=== PATIENT | female | born 1950 | race Caucasian/White ===

== ENCOUNTER 2023-07-07 06:21 | Day surgery (SDC) | payer MEDICARE, SELFPAY ==
[2023-06-26 10:58] LABS: Hematocrit 42.5 % (37.0-47.0); Hemoglobin 14.6 g/dL (12.0-16.0); Mean Corp Hgb Conc. 34.4 g/dL (33.0-37.0); Mean Corpuscular Hgb 32.6 pg (27.0-31.0); Mean Corpuscular Volume 94.9 fL (81.0-99.0); Mean Platelet Volume 11.2 fL (7.4-10.4); Platelet Count 252 10^3/uL (130-400); Red Blood Cell Count 4.48 10^6/uL (4.20-5.40); White Blood Cell Count 7.6 10^3/uL (4.8-10.8)
[2023-06-26 11:34] LABS: ALT (SGPT) 27 U/L (0-35); AST (SGOT) 29 U/L (14-36); Albumin 3.8 g/dl (3.5-5.0); Alkaline Phosphatase 85 U/L (38-126); Blood Urea Nitrogen 19 mg/dl (7-17); Calcium 9.6 mg/dl (8.4-10.2); Carbon Dioxide 26 mmol/L (22-30); Chloride 102 mmol/L (98-107); Glucose 88 mg/dl (70-99); Potassium 4.6 mmol/L (3.5-5.1); Sodium 137 mmol/L (135-145); Total Bilirubin 0.9 mg/dl (0.2-1.3); Total Protein 6.5 g/dl (6.3-8.2); eGFR > 60.00
[2023-06-26 12:55] VITALS: BMI 25.3
[2023-07-07] VITALS (18 sets, daily range): BP systolic 95–121; BP diastolic 52–75; BMI 25.3
[2023-07-07] MEDS: NORMOSOL-R 1000 IV (07:23)
[2023-07-07] MEDS: Pyridium 200 MG PO (07:24)
[2023-07-07] MEDS: DILAUDID 0.5 MG IV ×2 (10:57→11:32)
--- NOTE | 2023-07-07 11:40 | PTCARENOTE ---
pt. O2 sat 87-88% on room air, O2-2L placed back on pt. sats 98%. Encouraged deep breathing,pt. resting comfortably.
--- NOTE | 2023-07-07 11:50 | PTCARENOTE ---
Dr. Edmond at [facility], updated on pt. status
--- NOTE | 2023-07-07 12:44 | PTCARENOTE ---
deras catheter back filled with 250ml NSS, deras removed, pt. tolerated procedure without difficulty.
[2023-07-07] MEDS: ROXICODONE 5 MG PO (13:40)
== END 2023-07-07 17:15 | disposition home or self-care (01) ==
LOC: SDS 06:21
PROVIDERS: ATTENDING PHYSICIAN Obstetrics & Gynecology; FAMILY PHYSICIAN Family Medicine; OTHER PHYSICIAN Internal Medicine Cardiovascular Disease; OTHER PHYSICIAN Obstetrics & Gynecology Gynecology
DX: N81.6 Rectocele (principal); N81.10 Cystocele, unspecified; N39.3 Stress incontinence (female) (male); N36.41 Hypermobility of urethra
CPT/HCPCS: 57282; 57260; 57288; C1771; 36415; 80053; 85027; 86850; 86900; 86901; 93005

== ENCOUNTER → 2023-08-21 15:04 | Outpatient (REF) | payer MEDICARE, SELFPAY | LOC: CPAP 15:04 | PROVIDERS: ATTENDING PHYSICIAN Obstetrics & Gynecology | DX: N76.0 Acute vaginitis (principal) | CPT/HCPCS: 87070 ==

== ENCOUNTER → 2024-06-18 10:46 | Outpatient (REF) | payer MEDICARE, SELFPAY | LOC: HWWDC 10:46 | PROVIDERS: ATTENDING PHYSICIAN Family Medicine | DX: Z12.31 Encounter for screening mammogram for malignant neoplasm of breast (principal) | CPT/HCPCS: 77063; 77067 ==

== ENCOUNTER → 2024-06-25 08:53 | Outpatient (REF) | payer MEDICARE, SELFPAY | LOC: WDC 08:53 | PROVIDERS: ATTENDING PHYSICIAN Family Medicine | DX: R92.8 Other abnormal and inconclusive findings on diagnostic imaging of breast (principal) | CPT/HCPCS: 76642 ==

== ENCOUNTER → 2025-03-14 10:45 | Outpatient (REF) | payer MEDICARE, SELFPAY | LOC: PAVMRI 10:45 | PROVIDERS: ATTENDING PHYSICIAN Specialist; FAMILY PHYSICIAN Family Medicine | DX: M25.511 Pain in right shoulder (principal) | CPT/HCPCS: 73221 ==

== ENCOUNTER → 2025-05-14 07:07 | Outpatient (REF) | payer MEDICARE, SELFPAY | LOC: MRI 07:07 | PROVIDERS: ATTENDING PHYSICIAN Psychiatry & Neurology Neurology; FAMILY PHYSICIAN Family Medicine | DX: S06.9X0A Unspecified intracranial injury without loss of consciousness, initial encounter (principal); S06.0X0S Concussion without loss of consciousness, sequela; G44.329 Chronic post-traumatic headache, not intractable; R42 Dizziness and giddiness; R53.83 Other fatigue; H51.11 Convergence insufficiency; R41.89 Other symptoms and signs involving cognitive functions and awareness; R26.89 Other abnormalities of gait and mobility | CPT/HCPCS: 70551 ==